=== PATIENT | male | born 2005 | race Two or more races ===

== ENCOUNTER 2025-02-05 21:27 | Inpatient (IN) | payer MEDICAID, OTHER ==
[~2025-02-05] VITALS: Ht 162.6 cm; Wt 65.0 kg
--- NOTE | 2025-02-05 21:51 | ED.PDOC ---
SOB-HPI HPI Comments 19-year-old male who presents to the ED chief compliant of shortness a breath Patient states he has been having shortness of breath productive cough with mucus and chest pains for the past 20 minutes Patient states the pain is located across his chest intermittent with no associated exacerbating or relieving factors Patient otherwise denies any recent sick contacts Patient in the ED has noted heart rate of 151 and O2 saturation of 93% on room out otherwise stable vitals Patient denies any other symptoms at the time Past medical history: Denies Past Surgical history: Denies Allergies: Denies Medications: Denies Social history:Alcohol use occasionally, marijuana use, uses a vape daily EVERARDO: CP/SOB/COUGH. DEHYDRATED, TACHY, marijuana HPI: Poor Historian. REVIEW OF SYSTEMS: CONSTITUTIONAL: Denies acute: fever, diaphoresis, chills, HEAD: Denies acute: headache, photophobia Eyes: Denies acute: Double vision, vision loss, eye pain, eye discharge. EARS: Denies acute: tinnitus, hearing loss, ear discharge, ear pain, THROAT: Denies acute: sore throat, swelling, difficulty swallowing , pain with swallowing, change in voice. NECK: Denies acute: neck pain, neck swelling, stiff neck. HEART: Denies acute : palpitations, LUNGS: Denies acute: wheezing, hemoptysis ABDOMEN: Denies acute: abdominal pain, Nausea, Vomiting, diarrhea, melena , hematemesis, hematochezia SKIN: Denies acute: rash, redness, lesions, itchiness. EXTREMITIES: Denies acute: calf pain, numbness, tingling, weakness, denies pain in extremity. Denies acute: Low back pain. Neuro: Denies acute: focal neurological deficit, motor or sensory focal neurological deficit, tremors, seizure like activity, confusion, dizziness, change in mental status, loss of bowel or bladder function, cauda equina like symptoms. : Denies acute: dysuria, hematuria, flank pain, increase in urinary frequency. PSYCH: Denies acute: hallucination, suicidal ideation, homicidal ideation. PHYSICAL EXAM: General: ----mild----acute distress, awake and alert. Head: normocephalic, atraumatic. No raccoon's eyes, no petty sign. Neck: supple, trachea is midline, no swelling. Throat: Normal phonation. Eyes:, no erythema, no purulent discharge, no proptosis, no icterus. Heart: regular tachycardic, no significant murmur appreciated. Lungs: no apparent respiratory distress, Able to speak in full sentences. Slight wheezing, no rhonchi, no crackles. No stridors Abdomen: non tender to palpation, non distended, soft, no guarding, no rebound, + bowel sounds. Neuro: Awake, Alert, oriented to name, self, situation, follows commands GCS=15. Speech is normal. Skin: no petechia, no purpura, no cyanosis, non-pale, not jaundice. Lower extremities: --no - Pitting edema no deformity, no focal swelling, no calf TTP. Makes eye contact. moves all four extremities. Face: no apparent facial droop. Ambulating in the ED independently. ED COURSE: DISCLAIMER: This medical document was created using an electronic medical record system with voice recognition software and computerized dictation system. Although this document has been carefully reviewed, there might still be some phonetic and typographical errors. Occasional wrong-word or "sound-alike" substitutions may have occurred due to the inherent limitations of voice recognition software. These areas are purely typographical due to imperfections of the software programs and do not reflect any compromise in the patient's medical care. Please read the chart carefully and recognize, using context, where these substitutions have occurred. Chief Complaint: Shortness of breath Time Seen by MD: 21:49 Reviewed notes: Medications, Allergies Information Source: Patient Mode of Arrival: Ambulatory Brought in by: Self Severity: Moderate Timing: Minutes Duration: Since onset Past Medical History PAST MEDICAL HISTORY: Denies Surgical History: Denies all surgeries Family History Family History: Reviewed,noncontributory to illness Social History Smoker: Other (Vape) Alcohol: Occasionally Drugs: Marijuana Lives In: Home EKG EKG : Pulse Rate (adult): 142 Claridge: Normal Cardiac Rhythm: ST Block: None Hypertrophy: None ST: Normal Was a procedure done? Was a procedure done?: No Differential Dx Differential Diagnosis: Other (DDx include ACS, unstable angina, anxiety, PE, pneumothroax, neoplasm, cardiac ischemia, COPD, asthma, CHF, pleural effusion, tobacco abuse, pneumonia, hypoxia, hypercapnia, anemia., infection/sepsis., pulmonary edema. Asthma, Cardiac tamponade, infection.) X-Ray, Labs, Meds, VS Vital Signs Date Time Temp Pulse Resp B/P (MAP) Pulse Ox O2 Delivery O2 Flow Rate FiO2 02/06/25 02:17 111 20 117/82 (94) 94 02/06/25 00:38 126 02/06/25 00:06 20 95 Room Air* 0 21 02/06/25 00:00 125 20 133/91 (105) 94 02/06/25 00:00 123 02/05/25 23:00 134 19 92 Room Air* 0 21 02/05/25 23:00 98.4 134 19 130/86 (101) 96 98.4 02/05/25 22:44 130 02/05/25 21:51 142 02/05/25 21:34 142 02/05/25 21:30 97.7 151 18 135/101 93 97.7 Lab Test 02/06/25 00:43 02/05/25 23:07 02/05/25 23:00 02/05/25 22:30 Range/Units Lactic Acid Level 3.0 *H 2.5 *H 0.4-2.0 mmol/L Troponin I High Sensitivity 3 L < 3 L </=54 ng/L Influenza Type A Antigen Negative Negative Influenza Type B Antigen Negative Negative SARS-CoV-2 Antigen (Rapid) Negative NEGATIVE Urine Opiates Screen Neg NEGATIVE Urine Fentanyl Screen Neg NEGATIVE Urine Barbiturates Screen Neg NEGATIVE Urine Phencyclidine Screen Neg NEGATIVE Urine Amphetamines Screen Neg NEGATIVE Urine Benzodiazepines Screen Neg NEGATIVE Urine Cocaine Screen Neg NEGATIVE Urine Cannabinoids Screen Pos NEGATIVE Test 02/05/25 21:38 Range/Units White Blood Count 9.5 4.4-10.8 10^3/uL Red Blood Count 6.49 H 4.5-5.90 10^6/uL Hemoglobin 17.0 13.5-17.5 g/dL Hematocrit 51.2 41.0-53.0 % Mean Corpuscular Volume 78.9 L 80.0-100.0 fL Mean Corpuscular Hemoglobin 26.2 L 28.0-32.0 pg Mean Corpuscular Hemoglobin Concent 33.3 32.0-36.0 g/dL Red Cell Distribution Width 13.6 11.8-14.3 % Platelet Count 280 140-450 10^3/uL Mean Platelet Volume 8.0 6.9-10.8 fL Neutrophils (%) (Auto) 75.0 37.0-80.0 % Lymphocytes (%) (Auto) 10.9 10.0-50.0 % Monocytes (%) (Auto) 8.6 0.0-12.0 % Eosinophils (%) (Auto) 4.7 0.0-7.0 % Basophils (%) (Auto) 0.8 0.0-2.0 % Neutrophils # (Auto) 7.1 1.6-8.6 10 ^3/uL Lymphocytes # (Auto) 1.0 0.4-5.4 10 ^3/uL Monocytes # (Auto) 0.8 0-1.3 10 ^3/uL Eosinophils # (Auto) 0.4 0-0.8 10 ^3/uL Basophils # (Auto) 0.1 0-0.2 10 ^3/uL Nucleated Red Blood Cells 0.0 % D-Dimer, Quantitative < 0.19 0.0-0.49 mg/L FEU Sodium Level 139 136-145 mmol/L Potassium Level 3.4 L 3.5-5.1 mmol/L Chloride Level 100 98-107 mmol/L Carbon Dioxide Level 25 20-31 mmol/L Anion Gap 14 5-15 Blood Urea Nitrogen 12 9-23 mg/dL Creatinine 1.07 0.700-1.30 mg/dL Glomerular Filtration Rate Calc 101 >90 mL/min BUN/Creatinine Ratio 11.2 10.0-20.0 Serum Glucose 110 H 74-106 mg/dL Calcium Level 9.3 8.7-10.4 mg/dL Magnesium Level 2.0 1.6-2.6 mg/dL Troponin I High Sensitivity < 3 L </=54 ng/L Current Medications Medications (Trade) Dose Ordered Sig/Aditya Route Start Time Stop Time Status Last Admin Sodium Chloride 1,000 ml @ 1,000 mls/hr Q1H ONCE IV 02/05/25 22:30 02/05/25 23:29 DC 02/05/25 22:36 Sodium Chloride 1,000 ml @ 1,000 mls/hr Q1H ONCE IV 02/05/25 22:30 02/05/25 23:29 DC 02/05/25 23:53 Methylprednisolone Sodium Succinate (Solu Medrol) 125 mg ONCE ONCE IV 02/05/25 23:15 02/05/25 23:22 DC 02/05/25 23:55 Sodium Chloride 1,000 ml @ 1,000 mls/hr Q1H ONCE IV 02/06/25 01:30 02/06/25 02:29 02/06/25 01:22 [place] [id number] Ph: [phone] DIAGNOSTIC IMAGING Diagnostic Imaging Report : [id number] Signed PATIENT: ATIF MCGEEACCT: [id number] UNIT: [id number] : 2005 LOC: ER ROOM / BED: / AGE / SEX: 19 / M ADM STATUS: REG ER SERVICE 30 ORDERING PHYSICIAN: DIMITRIOS MEMBRENO MD PROCEDURE(s): CXRP - CHEST PORTABLE REASON: CP ORDER NUMBER(s): [id number], ACCESSION NUMBER(s): [id number] CHEST RADIOGRAPH INDICATION: CP TECHNIQUE: Single frontal view of the chest was obtained. COMPARISON: None FINDINGS: Mild perihilar haziness with peribronchial cuffing which may represent underlying reactive airway disease versus viral infection. No focal consolidation. No significant pleural effusion. No pneumothorax. Nonenlarged cardiomediastinal silhouette. IMPRESSION: Mild perihilar haziness with peribronchial cuffing which may represent underl pato reactive airway disease versus viral infection. No focal consolidation. ATED BY: NORMAN LOVE MD DICTATED DATE/TIME: 02/05/252156 SIGNED BY: NORMAN LOVE MD SIGNED DATE/TIME: 02/05/252156 CC: Time of 1ST Reevaluation: 22:30 Reevaluation 1ST: Unchanged Patient Education/Counseling: Diagnosis, Treatment Family Education/Counseling: No Family Present Comments MDM: patient presented with the above HPI.--cardiac and respiratory----workup was initiated. patient was found with the above mentioned diagnosis. the following medications were ordered: please refer to order lists of meds and tests obtained by myself Dr. Melgar. Patient ED course and VS have been stabilized. Patient has been reassessed in the ED and remained in a stable condition. Pertinent incidental findings were discussed with the patient and/or family. Patient/family voices understanding and is agreeable with plan. Patient has been observed in the ED adequate length of time to insure improvement/stability. Escalation of care considered: Consideration of escalation to observation or admission Symptoms of tachycardia are likely due to dehydration and excessive marijuana abuse. Patient was ADMITTED to the medicine team for further evaluation and treatment of their presentation. Patient was given fluids and lactic acid was monitored. Patient continued to be tachycardic. Empiric antibiotics initiated. DuoNeb and steroids were given. All the reports of any imaging studies that were ordered by myself were reviewed by myself. SEPSIS Sepsis Screen Physician Orders Chest Portable (02/05/25 21:31) Electrocardigram (02/05/25 21:31) Electrocardigram (02/05/25 22:31) Electrocardigram (02/06/25 00:31) Sodium Chloride 0.9% (02/06/25 01:30) Vital Signs Date Time Temp Pulse Resp B/P (MAP) Pulse Ox O2 Delivery O2 Flow Rate FiO2 02/06/25 02:17 111 20 117/82 (94) 94 02/06/25 00:38 126 02/06/25 00:06 20 95 Room Air* 0 21 02/06/25 00:00 125 20 133/91 (105) 94 02/06/25 00:00 123 02/05/25 23:00 134 19 92 Room Air* 0 21 02/05/25 23:00 98.4 134 19 130/86 (101) 96 98.4 02/05/25 22:44 130 02/05/25 21:51 142 02/05/25 21:34 142 02/05/25 21:30 97.7 151 18 135/101 93 97.7 Laboratory Tests Test 02/05/25 21:38 02/05/25 22:30 02/06/25 00:43 White Blood Count 9.5 10^3/uL (4.4-10.8) Lactic Acid Level 2.5 mmol/L (0.4-2.0) *H 3.0 mmol/L (0.4-2.0) *H Medications Medications Dose Ordered Sig/Aditya Route Start Time Stop Time Status Last Admin Dose Admin Methylprednisolone Sodium Succinate 125 mg ONCE ONCE IV 02/05/25 23:15 02/05/25 23:22 DC 02/05/25 23:55 Sodium Chloride 1,000 ml @ 1,000 mls/hr Q1H ONCE IV 02/06/25 01:30 02/06/25 02:29 02/06/25 01:22 Sodium Chloride 1,000 ml @ 1,000 mls/hr Q1H ONCE IV 02/05/25 22:30 02/05/25 23:29 DC 02/05/25 22:36 Sodium Chloride 1,000 ml @ 1,000 mls/hr Q1H ONCE IV 02/05/25 22:30 02/05/25 23:29 DC 02/05/25 23:53 Departure 1 Departure Time of Disposition: 05:42 Impression: Primary Impression: Tachycardia Additional Impression: Elevated lactic acid level Disposition: ADMITTED INPATIENT Admit to: [facility] Condition: Guarded Critical Care Note Critical Care Time?: Yes (45 min-critical care time only) Critical care comment: Due to a high probability of clinically significant, life threatening deterioration, the patient required my highest level of preparedness to intervene emergently and I personally spent this critical care time directly and personally managing the patient. This critical care time included obtaining a history; examining the patient; pulse oximetry; ordering and review of studies; arranging urgent treatment with development of a management plan; evaluation of patient's response to treatment; frequent reassessment; and, discussions with other providers. This critical care time was performed to assess and manage the high probability of imminent, life-threatening deterioration that could result in multi-organ failure. It was exclusive of separately billable procedures and treating other patients and teaching time. Please see my other sections and the rest of the note for further information on patient assessment and treatment. Heart Score Heart Score: Heart Score Response (Comments) Value History Slightly Suspicious 0 EKG Normal 0 Age <45 0 Risk Factors No known risk factors 0 Troponin Normal limit 0 Total 0 I personally scribed for ANETTE MELGAR DO ([email or web address]) on 02/05/25 at 21:51. Electronically submitted by Reina Jimenez ([email or web address]). I personally scribed for ANETTE MELGAR DO ([email or web address]) on 02/05/25 at 22:14. Electronically submitted by Reina Jimenez ([email or web address]). I personally scribed for ANETTE MELGAR DO ([email or web address]) on 02/06/25 at 02:28. Electronically submitted by Avinash Crouch ([email or web address]). ANETTE MELGAR DO Feb 05, 2025 21:51
[2025-02-05 21:54] LABS: Hematocrit 51.2 % (41.0-53.0); Hemoglobin 17.0 g/dL (13.5-17.5); Mean Corpuscular Hemoglobin 26.2 pg (28.0-32.0); Mean Corpuscular Volume 78.9 fL (80.0-100.0); Nucleated Red Blood Cells % 0.0 %
--- NOTE | 2025-02-05 22:00 | DVH ---
CHEST RADIOGRAPH INDICATION: CP TECHNIQUE: Single frontal view of the chest was obtained. COMPARISON: None FINDINGS: Mild perihilar haziness with peribronchial cuffing which may represent underlying reactive airway disease versus viral infection. No focal consolidation. No significant pleural effusion. No pneumothorax. Nonenlarged cardiomediastinal silhouette. IMPRESSION: Mild perihilar haziness with peribronchial cuffing which may represent underlying reactive airway disease versus viral infection. No focal consolidation.
[2025-02-05 22:07] LABS: Chloride 100 mmol/L (98-107); Sodium 139 mmol/L (136-145)
[2025-02-05 22:08] LABS: Anion Gap 14 (5-15); Calcium 9.3 mg/dL (8.7-10.4); Carbon Dioxide 25 mmol/L (20-31)
[2025-02-05 22:13] LABS: BUN/Creatinine Ratio 11.2 (10.0-20.0); Blood Urea Nitrogen 12 mg/dL (9-23)
[2025-02-05 22:18] LABS: Glucose 110 mg/dL (74-106); Potassium 3.4 mmol/L (3.5-5.1)
[2025-02-05] MEDS: SODIUM CHLORIDE 0.9% 1,000 ML IV ONE ×2 (22:36→23:53)
[2025-02-05 23:00] VITALS: PULSE 134; RESP 19; O2SAT 92
[2025-02-05] MEDS: ALBUTEROL SULF 2.5 MG/0.5ML(0.5%) NEB SOLN NEB ONE (23:15)
[2025-02-05] MEDS: IPRATROPIUM BROM 0.5 MG/2.5ML INH SOL NEB ONE (23:15)
[2025-02-05 23:21] LABS: Lactic Acid w/Reflex 2.5 mmol/L (0.4-2.0)
[2025-02-05] MEDS: methylPREDNISolone SOD SUCC 125 MG/2 ML VL IV ONE (23:55)
[2025-02-06 00:04] LABS: COVID19 ANTIGEN SOFIA FIA NEGATIVE (NEGATIVE)
[2025-02-06 00:17] LABS: Amphetamine Screen, Urine Neg (NEGATIVE); Barbiturate Scree,Urine Neg (NEGATIVE); Benzodiazephine Screen, Urine Neg (NEGATIVE); Cannabinoid Screen, Urine Pos (NEGATIVE); Cocaine Screen, Urine Neg (NEGATIVE); Opiate Scree,Urine Neg (NEGATIVE); Phencyclidine Screen, Urine Neg (NEGATIVE)
[2025-02-06] MEDS: SODIUM CHLORIDE 0.9% 1,000 ML IV ONE ×2 (01:22→05:14)
[2025-02-06] MEDS ORDERED: SODIUM CHLORIDE 0.9% 1,000 ML IV SCH (03:30)
--- NOTE | 2025-02-06 03:43 | DVHHPRES ---
History of Present Illness Resident Creating Document: LAUREN CONTRERAS RESIDENT History of Present Illness This is a 19-year-old male with past medical history of asthma on albuterol rescue inhaler came to ER with a complaint of shortness of breaths associated with non-productive cough which is sudden onset around 8:30 p.m. day before admission. Patient also have retrosternal chest pain which started same time 9/10 intensity, pressure-like sensation, no radiation, continuous dull pain, no aggravating or relieving factor. Mother-Maranda on bedside during encounter patient. Patient recently [place] her [place] and suddenly exposed to cold weather and aggravated the symptoms of asthma. Denies any fever, headache, abdominal pain, dysuria, nausea, vomiting, diarrhea, constipation or any focal weakness. Past medical history: Asthma Past surgical history: Nothing contributory Family history: Father-stroke, dm 2 Personal history: Denies any illicit drug but smoked marijuana daily, use ETOH occasionally. Allergy: Normal Allergy PCP: Not selected Home medication: Rescue inhaler-albuterol Review of Systems Constitutional: Yes: Weakness, Malaise; No: Fever, Chills, Sweats, Other Eyes: No: Pain, Vision change, Conjunctivae inflammation, Eyelid inflammation, Other, Redness ENT: No: Ear pain, Ear discharge, Nose pain, Nose discharge, Nose congestion, Mouth pain, Mouth swelling, Throat pain, Throat swelling, Other Respiratory: Cough, Shortness of breath; No: Dry, SOB with excertion, Wheezing, Hemoptysis, Pleuritic Pain, Sputum, Wheezing, Other Cardiovascular: Chest Pain; No: Palpitations, Orthopnea, Paroxysmal Noc. Dyspnea, Edema, Lt Headedness, Other Gastrointestinal: No: Nausea, Vomiting, Abdominal Pain, Diarrhea, Constipation, Melena, Hematochezia, Other Genitourinary: No Dysuria, No Frequency, No Incontinence, No Hematuria, No Retention, No Other Musculoskeletal: No: other, neck pain, shoulder pain, arm pain, back pain, hand pain, leg pain, foot pain Skin: No: Rash, Lesions, Jaundice, Bruising, Other Neurological: No: Weakness, Numbness, Incoordination, Change in speech, Confusion, Seizures, Other Allergies: Coded Allergies: NO KNOWN ALLERGIES (Unverified , 02/05/25) Exam Vital Signs Vital Signs Date Time Temp Pulse Resp B/P (MAP) Pulse Ox O2 Delivery O2 Flow Rate FiO2 02/06/25 02:17 111 20 117/82 (94) 94 02/06/25 00:06 Room Air* 0 21 02/05/25 23:00 98.4 98.4 General Appearance: Alert, Oriented X3, Cooperative, mild distress HEENT: Atraumatic, PERRLA, EOMI Respiratory: Other (Bilateral expiratory wheezes extensively noted on auscultation) Cardiovascular: Regular rate, Normal S1, Normal S2, No murmurs Abdominal: Normal bowel sounds Extremities: No clubbing, No cyanosis, No edema, Normal pulses Skin: No rashes, No breakdown Neuro: Normal gait, Normal speech, Strength at 5/5 X4 ext, Normal tone, Sensation intact, Cranial nerves 3-12 NL Psych/Mental Status: Mental status NL, Mood NL Labs/Xrays Labs Test 02/06/25 03:08 02/06/25 00:43 02/05/25 23:07 02/05/25 23:00 Range/Units Troponin I High Sensitivity 3 L </=54 ng/L Influenza Type A Antigen Negative Negative Influenza Type B Antigen Negative Negative SARS-CoV-2 Antigen (Rapid) Negative NEGATIVE Urine Opiates Screen Neg NEGATIVE Urine Fentanyl Screen Neg NEGATIVE Urine Barbiturates Screen Neg NEGATIVE Urine Phencyclidine Screen Neg NEGATIVE Urine Amphetamines Screen Neg NEGATIVE Urine Benzodiazepines Screen Neg NEGATIVE Urine Cocaine Screen Neg NEGATIVE Urine Cannabinoids Screen Pos NEGATIVE Test 02/05/25 21:38 Range/Units White Blood Count 9.5 4.4-10.8 10^3/uL Red Blood Count 6.49 H 4.5-5.90 10^6/uL Hemoglobin 17.0 13.5-17.5 g/dL Hematocrit 51.2 41.0-53.0 % Mean Corpuscular Volume 78.9 L 80.0-100.0 fL Mean Corpuscular Hemoglobin 26.2 L 28.0-32.0 pg Mean Corpuscular Hemoglobin Concent 33.3 32.0-36.0 g/dL Red Cell Distribution Width 13.6 11.8-14.3 % Platelet Count 280 140-450 10^3/uL Mean Platelet Volume 8.0 6.9-10.8 fL Neutrophils (%) (Auto) 75.0 37.0-80.0 % Lymphocytes (%) (Auto) 10.9 10.0-50.0 % Monocytes (%) (Auto) 8.6 0.0-12.0 % Eosinophils (%) (Auto) 4.7 0.0-7.0 % Basophils (%) (Auto) 0.8 0.0-2.0 % Neutrophils # (Auto) 7.1 1.6-8.6 10 ^3/uL Lymphocytes # (Auto) 1.0 0.4-5.4 10 ^3/uL Monocytes # (Auto) 0.8 0-1.3 10 ^3/uL Eosinophils # (Auto) 0.4 0-0.8 10 ^3/uL Basophils # (Auto) 0.1 0-0.2 10 ^3/uL Nucleated Red Blood Cells 0.0 % D-Dimer, Quantitative < 0.19 0.0-0.49 mg/L FEU Sodium Level 139 136-145 mmol/L Potassium Level 3.4 L 3.5-5.1 mmol/L Chloride Level 100 98-107 mmol/L Carbon Dioxide Level 25 20-31 mmol/L Anion Gap 14 5-15 Blood Urea Nitrogen 12 9-23 mg/dL Creatinine 1.07 0.700-1.30 mg/dL Glomerular Filtration Rate Calc 101 >90 mL/min BUN/Creatinine Ratio 11.2 10.0-20.0 Serum Glucose 110 H 74-106 mg/dL Calcium Level 9.3 8.7-10.4 mg/dL Magnesium Level 2.0 1.6-2.6 mg/dL SEPSIS Sepsis Screen Date sepsis recognized/suspect: Feb 05, 2025 Time Sepsis recognized/suspect: 2299 Recent Procedure: No On Antibiotic Therapy: No Respiratory Rate >20: No Heart Rate >90: Yes Temp<36 C (96.8 F) or >38.3 C: No SBP <90 or MAP <65 mmHG: No New Acute Mental Status Change: No Is the patient on CPAP, BIPAP,: No Physician Orders Chest Portable (02/05/25 21:31) Electrocardigram (02/05/25 21:31) Electrocardigram (02/05/25 22:31) Electrocardigram (02/06/25 00:31) Lactic Acid W/ Reflex Order (02/06/25 02:56) Admit (02/06/25 03:21) Code Status (02/06/25 03:21) Sodium Chloride 0.9% (02/06/25 03:30) Notify Of Changes From Base (02/06/25 03:21) Methylprednisolone Sod Succ (Solu Medrol (02/06/25 03:30) Albuterol Medneb (Ventolin Medneb) (02/06/25 06:00) Ipratropium Medneb (Atrovent Medneb) (02/06/25 06:00) Regular Diet (02/06/25 Breakfast) Vital Signs Date Time Temp Pulse Resp B/P (MAP) Pulse Ox O2 Delivery O2 Flow Rate FiO2 02/06/25 02:17 111 20 117/82 (94) 94 02/06/25 00:38 126 02/06/25 00:06 20 95 Room Air* 0 21 02/06/25 00:00 125 20 133/91 (105) 94 02/06/25 00:00 123 02/05/25 23:00 134 19 92 Room Air* 0 21 02/05/25 23:00 98.4 134 19 130/86 (101) 96 98.4 02/05/25 22:44 130 02/05/25 21:51 142 02/05/25 21:34 142 02/05/25 21:30 97.7 151 18 135/101 93 97.7 Laboratory Tests Test 02/05/25 21:38 02/05/25 22:30 02/06/25 00:43 02/06/25 03:08 White Blood Count 9.5 10^3/uL (4.4-10.8) Lactic Acid Level 2.5 mmol/L (0.4-2.0) *H 3.0 mmol/L (0.4-2.0) *H Pending Medications Medications Dose Ordered Sig/Aditya Route Start Time Stop Time Status Last Admin Dose Admin Ceftriaxone Sodium 50 ml @ 100 mls/hr ONCE ONCE IV 02/06/25 02:45 02/06/25 03:14 DC 02/06/25 03:19 100 MLS/HR Methylprednisolone Sodium Succinate 125 mg ONCE ONCE IV 02/05/25 23:15 02/05/25 23:22 DC 02/05/25 23:55 125 MG Sodium Chloride 1,000 ml @ 1,000 mls/hr Q1H ONCE IV 02/06/25 01:30 02/06/25 02:29 DC 02/06/25 01:22 1,000 MLS/HR Sodium Chloride 1,000 ml @ 1,000 mls/hr Q1H ONCE IV 02/05/25 22:30 02/05/25 23:29 DC 02/05/25 22:36 1,000 MLS/HR Sodium Chloride 1,000 ml @ 1,000 mls/hr Q1H ONCE IV 02/05/25 22:30 02/05/25 23:29 DC 02/05/25 23:53 1,000 MLS/HR Assessment/Plan Assessment/Plan Acute exacerbation of asthma Chest pain rule out ACS During admission, HR 151, O2 SAT 92% IN ER, patient received ceftriaxone, NSS, methylprednisolone, ipratropium, albuterol. D-dimer: <0.19 Troponin : <3 and repeat troponin 3 Influenza test: Negative COVID-19: Negative CXR: Mild perihilar haziness with peribronchial cuffing which may represent underlying reactive airway disease versus viral infection. Magnesium:2.0 Azithromycin Albuterol nebulization Ipratropium nebulization Methylprednisolone Oxygen via NC if needed Keep O2 saturation>92% Lactic acidosis Lactic acid: 2.5>3.0 Hypokalemia Potassium 3.4, supplemented BMP Substance abuse/use marijuana UDS positive for marijuana Counseling done>13 minute spent DIET: Regular GI prophylaxis: None DVT prophylaxis: Lovenox Goals of care discharge. More than 23 minute spent with patient. Full code status. Case discussed with Dr. Bal Plan discussed with: Patient, Other (Nurse, mother-Maranda) My Orders Orders - LAUREN CONTRERAS RESIDENT Procedure Category Date Status Time Admit ADMIT 02/06/25 Transmitted 03:21 Code Status CODE 02/06/25 Transmitted 03:21 Sodium Chloride 0.9% PHA 02/06/25 Logged 03:30 Notify Of Changes ALANNA 02/06/25 In Process From Base 03:21 Methylprednisolone PHA 02/06/25 Transmitted Sod Succ (Solu Medrol 03:30 Albuterol Medneb PHA 02/06/25 Transmitted (Ventolin Medneb) 06:00 Ipratropium Medneb PHA 02/06/25 Transmitted (Atrovent Medneb) 06:00 Regular Diet DIET 12/10/25 Verified Breakfast Visit Coding STANDARD RES Billing Provider: LARISA BAL MD Date of Service if different f: Feb 06, 2025 Common Visit Codes: 05813-ISTMTQD INP/OBS CARE (HIGH) Secondary Visit Codes: 46169-[id number] CARE PLAN 30 MINUTES LAUREN CONTRERAS RESIDENT Feb 06, 2025 03:43
[2025-02-06 03:44] LABS: Lactic Acid w/Reflex 2.5 mmol/L (0.4-2.0)
[2025-02-06 04:40] VITALS: BP 117/82; PULSE 118; RESP 20; TEMP 98.4; O2SAT 94
[2025-02-06] MEDS: AZITHROMYCIN 250 MG TAB PO ONE (05:13)
[2025-02-06] MEDS: methylPREDNISolone SOD SUCC 40 MG/ML VL IV ONE (05:13)
[2025-02-06] MEDS: POTASSIUM CHL 20 Meq TABLET PO ONE (05:15)
[2025-02-06] MEDS: methylPREDNISolone SOD SUCC 40 MG/ML VL ONE (05:30)
[2025-02-06] MEDS ORDERED: IPRATROPIUM BROM 0.5 MG/2.5ML INH SOL NEB SCH ×2 (06:00→14:00)
[2025-02-06] MEDS ORDERED: ALBUTEROL SULF 2.5 MG/0.5ML(0.5%) NEB SOLN NEB SCH ×2 (06:00→14:00)
[2025-02-06] MEDS: MAGNESIUM SULFATE 1GM/100ML 100 ML IV ONE (06:34)
[2025-02-06 06:35] VITALS: PULSE 98; RESP 18; O2SAT 96
[2025-02-06] MEDS: IPRATROPIUM BROM 0.5 MG/2.5ML INH SOL NEB SCH (06:35)
[2025-02-06] MEDS: ALBUTEROL SULF 2.5 MG/0.5ML(0.5%) NEB SOLN NEB SCH (06:36)
[2025-02-06 06:37] LABS: Hematocrit 46.7 % (41.0-53.0); Hemoglobin 15.8 g/dL (13.5-17.5); Mean Corpuscular Hemoglobin 26.6 pg (28.0-32.0); Mean Corpuscular Volume 78.6 fL (80.0-100.0); Nucleated Red Blood Cells % 0.1 %
[2025-02-06 06:41] VITALS: PULSE 100; RESP 18; O2SAT 96
[2025-02-06 06:56] LABS: Alanine Aminotransferase 22 U/L (7-40); Albumin 4.4 g/dL (3.2-4.8); Alkaline Phosphatase 75 U/L (46-116); Anion Gap 12 (5-15); BUN/Creatinine Ratio 7.0 (10.0-20.0); Calcium 8.8 mg/dL (8.7-10.4); Carbon Dioxide 21 mmol/L (20-31); Magnesium 2.0 mg/dL (1.6-2.6); Potassium 4.0 mmol/L (3.5-5.1); Sodium 141 mmol/L (136-145); Total Protein 7.1 g/dL (5.7-8.2)
[2025-02-06 06:57] LABS: Bilirubin, Total 0.6 mg/dL (0.2-1.0); Blood Urea Nitrogen 6 mg/dL (9-23); Chloride 108 mmol/L (98-107); Glucose 145 mg/dL (74-106)
--- NOTE | 2025-02-06 07:08 | ECG ---
[facility] Test Date: 2025-02-05 Test Time: 21:34:21 Pat Name: ATIF MCGEE Department: ED Room: [address] [place] [address] A Gender: M Field Return Repairer: SARANYA : 2005 Requested By: DIMITRIOS MEMBRENO Order Number: [id number] Reading MD: Asad Jones Measurements Intervals [place] Rate: 142 P: 89 VA: 132 QRS: 89 QRSD: 88 T: -40 QT: 247 QTc: 380 Interpretive Statements Sinus tachycardia LAE, consider biatrial enlargement Abnormal lateral Q waves Borderline T abnormalities, inferior leads Baseline wander in lead(s) I,II,aVR Electronically Signed On 02-07-2025 20:08:12 PST by Asad Jones Please click the below link to view image of tracing.
--- NOTE | 2025-02-06 07:08 | ECG ---
[facility] Test Date: 2025-02-05 Test Time: 22:44:44 Pat Name: ATIF MCGEE Department: ED Room: [address] [place] [address] A Gender: M Clean Up Person: ZAKIYA : 2005 Requested By: DIMITRIOS MEMBRENO Order Number: [id number] Reading MD: Asad Jones Measurements Intervals [place] Rate: 130 P: 78 RI: 150 QRS: 85 QRSD: 87 T: 26 QT: 296 QTc: 435 Interpretive Statements Sinus tachycardia LAE, consider biatrial enlargement Electronically Signed On 02-07-2025 20:08:21 PST by Asad Jones Please click the below link to view image of tracing.
[2025-02-06 07:30] VITALS: PULSE 119; RESP 16; TEMP 98.1; O2SAT 95
[2025-02-06] MEDS: SODIUM CHLORIDE 0.9% 1,000 ML IV SCH (08:30)
[2025-02-06] MEDS: FAMOTIDINE 20 MG TAB PO SCH (10:15)
[2025-02-06] MEDS: predniSONE 20 MG TAB PO SCH (10:15)
[2025-02-06] MEDS ORDERED: MAGNESIUM SULFATE 1GM/100ML 100 ML IV SCH (11:00)
[2025-02-06] MEDS ORDERED: PRED20TA2 PO (11:11)
[2025-02-06] MEDS ORDERED: AZIT-185 PO (11:11)
[2025-02-06] MEDS ORDERED: BUDE1AER4 IN (11:11)
[2025-02-06 12:03] VITALS: BP 145/80; PULSE 121; RESP 21; O2SAT 95
--- NOTE | 2025-02-06 13:45 | DVHDSRES ---
Discharge Summary Date of Admission Resident Creating Document: RUPERT REILLY RESIDENT Feb 06, 2025 at 03:21 Date of Discharge: Feb 06, 2025 Admitting Diagnosis Acute exacerbation of asthma Wounds: none Labs/Diagnostic Data: Laboratory Results Test 02/06/25 06:10 02/06/25 00:43 02/05/25 23:07 02/05/25 23:00 White Blood Count 4.9 10^3/uL (4.4-10.8) Red Blood Count 5.94 10^6/uL (4.5-5.90) Hemoglobin 15.8 g/dL (13.5-17.5) Hematocrit 46.7 % (41.0-53.0) Mean Corpuscular Volume 78.6 fL (80.0-100.0) Mean Corpuscular Hemoglobin 26.6 pg (28.0-32.0) Mean Corpuscular Hemoglobin Concent 33.8 g/dL (32.0-36.0) Red Cell Distribution Width 13.7 % (11.8-14.3) Platelet Count 284 10^3/uL (140-450) Mean Platelet Volume 8.1 fL (6.9-10.8) Neutrophils (%) (Auto) 90.6 % (37.0-80.0) Lymphocytes (%) (Auto) 6.9 % (10.0-50.0) Monocytes (%) (Auto) 2.3 % (0.0-12.0) Eosinophils (%) (Auto) 0.1 % (0.0-7.0) Basophils (%) (Auto) 0.1 % (0.0-2.0) Neutrophils # (Auto) 4.4 10 ^3/uL (1.6-8.6) Lymphocytes # (Auto) 0.3 10 ^3/uL (0.4-5.4) Monocytes # (Auto) 0.1 10 ^3/uL (0-1.3) Eosinophils # (Auto) 0 10 ^3/uL (0-0.8) Basophils # (Auto) 0 10 ^3/uL (0-0.2) Nucleated Red Blood Cells 0.1 % Sodium Level 141 mmol/L (136-145) Potassium Level 4.0 mmol/L (3.5-5.1) Chloride Level 108 mmol/L (98-107) Carbon Dioxide Level 21 mmol/L (20-31) Anion Gap 12 (5-15) Blood Urea Nitrogen 6 mg/dL (9-23) Creatinine 0.86 mg/dL (0.700-1.30) Glomerular Filtration Rate Calc 126 mL/min (>90) BUN/Creatinine Ratio 7.0 (10.0-20.0) Serum Glucose 145 mg/dL (74-106) Lactic Acid Level 1.6 mmol/L (0.4-2.0) Calcium Level 8.8 mg/dL (8.7-10.4) Magnesium Level 2.0 mg/dL (1.6-2.6) Total Bilirubin 0.6 mg/dL (0.2-1.0) Aspartate Amino Transferase (AST) 19 U/L (13-40) Alanine Aminotransferase (ALT) 22 U/L (7-40) Alkaline Phosphatase 75 U/L (46-116) Total Protein 7.1 g/dL (5.7-8.2) Albumin 4.4 g/dL (3.2-4.8) Troponin I High Sensitivity 3 ng/L (</=54) Influenza Type A Antigen Negative (Negative) Influenza Type B Antigen Negative (Negative) SARS-CoV-2 Antigen (Rapid) Negative (NEGATIVE) Urine Opiates Screen Neg (NEGATIVE) Urine Fentanyl Screen Neg (NEGATIVE) Urine Barbiturates Screen Neg (NEGATIVE) Urine Phencyclidine Screen Neg (NEGATIVE) Urine Amphetamines Screen Neg (NEGATIVE) Urine Benzodiazepines Screen Neg (NEGATIVE) Urine Cocaine Screen Neg (NEGATIVE) Urine Cannabinoids Screen Pos (NEGATIVE) Test 02/05/25 21:38 D-Dimer, Quantitative < 0.19 mg/L FEU (0.0-0.49) Other Laboratory Tests 02/06/25 06:10 Brief Hx & Hospital Course: Tom Sesay is a 19-year old male with past medical history of childhood asthma who came to the ED with the chief complaint of shortness of breath. He started having a cough 2 days back which was productive with clear sputum, started having shortness of breath last night for which he tried using rescue inhaler but it did not relieve his symptoms. He also complained of tightness in the chest with chest pain which he described as 9/10, pressure- like, with no aggravating or relieving factors. He denies any fever, chills, recent travel or recent sick contacts. Was given ceftriaxone and azithromycin, iv magnesium, IV steroids with mednebs. He did not require any oxygen use while hospitalized. On examination today, the patient mentioned his symptoms have resolved. He was discharged home in a stable condition with azithromycin for 4 days, prednisone for 5 days and budesonide-formoterol inhaler. All medications and recommendations were thoroughly explained to the patient and he demonstrated understanding of the same. He was recommended to follow up with PCP and in discharge Clinic in 1 week. Past medical history: Asthma Past surgical history: Nothing contributory Family history: Father-stroke Personal history: Denies any illicit drug but smoked marijuana daily, used alcohol occasionally Allergy: no know allergies General Appearance: Cooperative. Well developed. Well nourished. NAD Head Exam: Normal inspection Neck Exam: Normal inspection. Non-tender. Normal alignment Pulmonary/Respiratory: Chest non-tender, mild bilateral expiratory wheezing Cardiovascular/Chest: Regular rate and rhythm. No murmurs. No JVD. Peripheral Pulses: 2+ Radial (R). 2+ Radial (L). 2+ Pedal (R). 2+ Pedal (L) Abdominal Exam: Normal bowel sounds. Soft. normal abdomen, no visible veins, Nontender. No hepatospenomegaly. No masses Ankle Exam: Negative ankle edema Lower extremities: Negative lower extremity edema Neuro/Mental Status: A&O x4. Coherent. Thoughts/Psych: Normal thought pattern. Appropriate mood and affect. Good judgement and insight Skin Exam: Normal inspection. Normal color. Warm. Dry Operations or Procedures PROCEDURE(s): CXRP - CHEST PORTABLE REASON: ORDER NUMBER(s): [id number], ACCESSION NUMBER(s): [id number] CHEST RADIOGRAPH INDICATION: CP TECHNIQUE: Single frontal view of the chest was obtained. COMPARISON: None FINDINGS: Mild perihilar haziness with peribronchial cuffing which may represent underlying reactive airway disease versus viral infection. No focal consolidation. No significant pleural effusion. No pneumothorax. Nonenlarged cardiomediastinal silhouette. IMPRESSION: Mild perihilar haziness with peribronchial cuffing which may represent underlying reactive airway disease versus viral infection. No focal consolidation. Condition at Discharge: Good Final Diagnosis/Problems List Acute hypoxic respiratory failure Acute asthma exacerbation Chest pain, ruled out ACS Lactic acidosis, resolved Hypokalemia, repleted Substance abuse (marijuana) Discharge Disposition: Home Discharge Instruct/Medications Diet: Regular Activity: No Restrictions, As Tolerated Follow Up/Referral: Follow up in discharge Clinic in 1 week Follow up with PCP in 1-2 weeks Medications: as per EMR Scheduled Azithromycin (Zithromax Tablet), 250 MG PO DAILY Budesonide-Formoterol Fumarate (Budesonide/Formoterol Fum 160-4.5 Mcg/Act), 2 PUFF IN BID Prednisone (Prednisone), 40 MG PO DAILY Discharge Statement: "Patient was advised to return to the ER or call 911 if any headaches, dizziness, shortness of breath, chest pain, abdominal pain, bleeding, fevers, or worsening of medical condition. Patient was counseled about treatment plan, medications, possible side effects, patientverbalized understanding. All questions were answered to the best of my ability. This discharge took greater then 30 minutes in planning, reviewing documentation, counseling the patient, and discussing with other team members." ASSESSMENT ASSESSMENT Assessment acute asthma exacerbation Visit Coding STANDARD RES Billing Provider: TAYO BAI MD Date of Service if different f: Feb 06, 2025 Common Visit Codes: 47909-RGG/OBS DISCH DAY >30min RUPERT REILLY RESIDENT Feb 06, 2025 13:45
--- NOTE | 2025-02-06 17:00 | ECG ---
[facility] Test Date: 2025-02-06 Test Time: 00:38:30 Pat Name: ATIF MCGEE Department: Room: [address] [place] [address] Gender: M Paramedic Supervisor: ZAKIYA : 2005 Requested By: DIMITRIOS MEMBRENO Order Number: [id number] Reading MD: Asad Jones Measurements Intervals [place] Rate: 126 P: 78 RI: 163 QRS: 83 QRSD: 88 T: -5 QT: 294 QTc: 426 Interpretive Statements Sinus tachycardia Probable left atrial enlargement Borderline T wave abnormalities Electronically Signed On 02-07-2025 20:08:33 PST by Asad Jones Please click the below link to view image of tracing.
[2025-02-07] MEDS ORDERED: AZITHROMYCIN 250 MG TAB PO SCH (10:00)
== END 2025-02-06 12:06 | disposition home or self-care (01) | DRG 133 ==
LOC: ER 21:27 → OVERFLOW 02-06 03:21 → ER 02-06 03:23 → OVERFLOW 02-06 03:25 → UNDODEPER 02-06 11:55
PROVIDERS: ADMIT Student in an Organized Health Care Education/Training Program; ATTEND Student in an Organized Health Care Education/Training Program
DX: J96.01 Acute respiratory failure with hypoxia (principal); E87.20 Acidosis, unspecified; J45.901 Unspecified asthma with (acute) exacerbation; F12.10 Cannabis abuse, uncomplicated; E87.6 Hypokalemia; F17.200 Nicotine dependence, unspecified, uncomplicated; Z20.822 Contact with and (suspected) exposure to COVID-19
CPT/HCPCS: 36415; 71045; 80048; 80053; 80307; 82306; 83605; 83735; 84484; 85025; 85379; 87426; 87804; 93005; 94640; 99291; G0378